=== PATIENT | female | born 1945 | race Two or more races ===

== ENCOUNTER 2025-04-07 14:48 | Emergency (ER) | payer OTHER, SELFPAY ==
[2025-04-07] VITALS (7 sets, daily range): BP systolic 129–148; BP diastolic 58–78; PULSE 78–98; RESP 18; TEMP 36.2–37.3; O2SAT 97–99; BMI 27.7
--- NOTE | ~2025-04-07 | XR_ITS ---
CLINICAL HISTORY: cough 1 view chest x-ray Comparison: None provided Findings: Prominent interstitial markings and peribronchial thickening may be atypical infection. No consolidation, pleural effusion or pneumothorax. Normal size heart. No acute fracture. IMPRESSION: Prominent interstitial markings and peribronchial thickening, possibly representing atypical infection. No consolidation. This document has been electronically signed by: Faizan Frias MD on 04/07/2025 18:06:33
--- NOTE | ~2025-04-07 | CT_ITS ---
EXAMINATION: CT HEAD WITHOUT CONTRAST CLINICAL INFORMATION: loss of balance, Hx of untreated melanoma COMPARISON: None available. TECHNIQUE: Contiguous axial imaging was performed from the skull base to vertex without intravenous administration of contrast. This CT examination was performed using dose optimization techniques as appropriate, variously including the following: *Automated exposure control *Adjustment of mA and/or kV according to patient size (this includes techniques or standardized protocols for targeted exams where dose is matched to indication/reason for exam; i.e. extremities or head) *Use of iterative reconstruction technique DLP: 597 mGy-cm FINDINGS: No acute intracranial hemorrhage, mass effect, midline shift, hydrocephalus or herniation. Prominence of the extra-axial CSF spaces cerebral sulci in the frontal poles. Bilateral multifocal patchy deep periventricular white matter hypodensity. Calcified plaques in the cavernous supracavernous segments both ICAs. Xanthogranulomatous choroid plexus bilaterally. Calcified plaques in the V4 segments. Sellar/suprasellar region demonstrated no gross masses. Craniocervical junction demonstrates normal position of the cerebellar tonsils. Mucosal thickening and secretions in the paranasal sinuses with effervescent secretions in the left saphenous sinus. Polypoid morphology in the left maxillary sinus. Tympanic cavities and mastoid cells are aerated. CT/CT head/brain wo IV con IMPRESSION: No acute intracranial hemorrhage. 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 Atherosclerosis disease. Electronically signed by: Anthony Arita MD 04/07/2025 03:37 PM EDT
--- NOTE | 2025-04-07 15:08 | ECG_ITS ---
Test Reason : DIZZINESS Blood Pressure : */* mmHG Vent. Rate : 80 BPM Atrial Rate : 80 BPM P-R Int : 126 ms QRS Dur : 86 ms QT Int : 358 ms P-R-T Axes : 11 46 50 degrees QTcB Int : 412 ms Normal sinus rhythm Normal ECG No previous ECGs available Referred By: Julio Hughes Electronically Signed By: NELSON AYALA MD
--- NOTE | 2025-04-07 15:08 | ED.GENADULT ---
[facility] - General Adult General Chief complaint: Dizziness Stated complaint: Facial itchiness, skin cancer Time Seen by Provider: 04/07/25 17:32 Source: patient Mode of arrival: ambulatory Limitations: no limitations History of Present Illness HPI narrative: this is a thom 80 years old female patient presented to the emergency department complaining of weakness and cough hitching of the face. Denies any fever any chills. Symptoms have been going on for a few days Onset (ago): day(s) (2) Location: face Radiation: non-radiation Severity: mild Quality: burning Pain Consistency: constant Related Data Allergies Allergy/AdvReac Type Severity Reaction Status Date / Time No Known Allergies Allergy Verified 04/07/25 15:14 Review of Systems Constitutional: Constitutional: Reports as per [facility] Past Medical History Attestation statement: The following information was validated with the patient. [facility] Narrative: She denies any major medical problems Social History Social History Smoked in Last 30 Days: No Use of substances other than those prescribed or required for medical reasons: No Advance Directives: No Advance Directives Information Provided: No Do you have a plan to hurt others: No Plan Physical Exam ED Vital Signs: Vital Signs - 24 hr 04/07/25 15:08 04/07/25 16:32 04/07/25 17:18 Temperature 98.2 F 97.2 F Pulse Rate 98 81 78 Respiratory Rate 18 18 Blood Pressure 148/58 H 135/78 129/64 Pulse Oximetry 97 99 Oxygen Delivery Method Room Air Room Air 04/07/25 17:20 04/07/25 17:21 04/07/25 18:32 Temperature Pulse Rate 81 91 82 Respiratory Rate 18 Blood Pressure 135/68 141/78 H 134/71 Pulse Oximetry 97 Oxygen Delivery Method Room Air 04/07/25 18:34 Temperature 99.2 F Pulse Rate 82 Respiratory Rate 18 Blood Pressure 134/71 Pulse Oximetry 97 Oxygen Delivery Method Room Air BMI result Body Mass Index 27.7 she looks well she is not toxic-appearing she has stable vital signs her O2 sat is normal she is afebrile Const General: cooperative, comfortable and no acute distress Nutritional Appearance: average body habitus Orientation/consciousness: patient oriented x3 Limitations: no limitations HENMT Head: Yes normal to inspection General nose exam: Normal external nose present Face and sinus: Yes normal facial exam Mouth: Normal oral and palatal mucosa present Neck Neck: Yes normal visual inspection Chest Chest palpation & inspection: normal inspection of the chest Resp Other: lungs are clear no wheezing no rales Effort & Inspection: normal respiratory effort Cardio Jugular venous distension: no JVD Rate: regular rate Rhythm: regular rhythm GI Inspection: Yes normal to inspection Palpation (GI): Soft to palpation, not firm and nontender Skin General skin exam: elasticity normal and turgor normal Neuro General: patient oriented x3 Course Course Course Narrative: RME, this is a rapid medical exam performed by Jarod Hughes please refer to primary provider for complete H&P- 80-year-old female presents for evaluation of loss of balance. Patient was reportedly diagnosed with skin cancer, melena 1 year ago and did not get and intermittent for this. She is now complaining of dizziness and unsteady gait. She can from urgent care to have a CT scan of her brain. Plan for basic labs as well Reevaluation(s) Reevaluation #1: patient remained stable O2 sat 99% she is COVID positive over she is oxygenating very well she is not tachypneic respiration is 18 she is not tachycardic she is able to drink fluid I think she can go home with the family Time: 18:18 Medical Decision Making Medical Decision Making [facility] Narrative: patient is here complaining of weakness generalized malaise and it is reasonable to check blood work chest x-ray. 60 18:00 COVID test positive vital signs remained stable with a excellent oxygenation no tachypnea not tachycardia I think she can Differential Diagnosis Differential Diagnoses: The differential diagnosis associated with the presentation includes Viral syndrome /flu /pneumonia Admission/Observation Consideration of admission/observation: Escalation of care including admission/observation considered Lab Data [facility] Lab Attestation statement: I reviewed the patient's lab results. 04/07/25 15:36 04/07/25 15:36 Labs: Lab Results 04/07/25 Range/Units 15:36 WBC 10.6 (4.8-10.8) X10*3/uL RBC 4.25 (4.20-5.50) X10*6/uL Hgb 12.7 (12.0-16.0) g/dl Hct 37.7 (37.0-47.0) % MCV 88.7 (80.0-98.0) fL MCH 29.9 (27.0-33.0) pg MCHC 33.7 (31.0-35.0) g/dl RDW 13.2 (11.0-16.0) % Plt Count 184 (160-400) X10*3/uL MPV 9.1 L (9.4-12.3) fL Immature Gran % (Auto) 0.3 (0.0-0.4) % Neut % (Auto) 58.6 (45-73) % Lymph % (Auto) 26.9 (20-40) % [place] % (Auto) 8.7 (2-11) % Eos % (Auto) 5.2 H (0-4) % Baso % (Auto) 0.3 (0-2) % Lymph # (Auto) 2.9 (1.2-4.9) X10*3/uL [place] # (Auto) 0.9 (0.1-1.2) X10*3/uL Eos # (Auto) 0.6 H (0.0-0.4) X10*3/uL Baso # (Auto) 0.0 (0.0-0.2) X10*3/uL Abs Immat Gran (auto) 0.03 (0.00-0.03) X10*3/uL Absolute Neuts (auto) 6.2 (2.0-8.3) x10*3/uL Absolute Nucleated RBC 0.000 (0.0-0.012) X10*3/uL Nucleated RBC % (auto) 0.0 (0.0-0.2) /100WBC Sodium 143 (135-145) mmol/L Potassium 3.8 (3.3-5.1) mmol/L Chloride 107 (96-108) mmol/L Carbon Dioxide 28 (22-29) mmol/L Anion Gap 12 (12-20) BUN 25 H (9-16) mg/dL Creatinine 0.79 (0.5-1.4) mg/dL Estim Creat Clear Calc 45.6 Estimated GFR > 60 Random Glucose 91 (60-115) mg/dL Calcium 9.6 (8.4-10.2) mg/dL Total Bilirubin 0.5 (0.0-1.0) mg/dL AST 31 (5-31) U/L ALT 23 (0-31) U/L Alkaline Phosphatase 82 (39-117) U/L Total Protein 7.2 (6.5-8.0) g/dL Albumin 4.1 (3.5-5.0) g/dL Lipase 34 (8-78) U/L Influenza Type A (PCR) NEGATIVE (Negative) Influenza Type B (PCR) NEGATIVE (Negative) RSV RNA Qual (PCR) NEGATIVE (Negative) SARS-CoV-2 RNA (RT-PCR) POSITIVE A (Negative) Radiology Impression Discussion of test interpretation with radiology: I have reviewed the radiologist's reading. Independent Historian Clinical information obtained from an independent historian. History obtained from or confirmed by: Other (brother) 1 view chest x-ray Comparison: None provided Findings: Prominent interstitial markings and peribronchial thickening may be atypical infection. No consolidation, pleural effusion or pneumothorax. Normal size heart. No acute fracture. IMPRESSION: Prominent interstitial markings and peribronchial thickening, possibly representing atypical infection. No consolidation. This document has been electronically signed by: Faizan Frias MD on 04/07/2025 18:06:33 Discharge Plan Discharge Clinical Impression: COVID-19 Patient Disposition: Home, Self-Care Instructions: COVID-19 (Coronavirus Disease 2019) (ED) Additional Instructions: , you tested positive for COVID however you do not have a fever ,your oxygen is excellent your no coughing at this time we are not sure if he is this is a new infection vs old infection. Your stable for discharge follow-up with your primary care physician take ibuprofen or Tylenol as needed Interventions: ED Discharge Assessment Last Done: 04/07/25 18:34 Discharge Date/Time: 04/07/25 18:35 Print Language: Greenlandic
[2025-04-07 15:40] LABS: MANUAL DIFF FLAG NO
[2025-04-07 15:42] LABS: Hematocrit 37.7 % (37.0-47.0); Hemoglobin 12.7 g/dl (12.0-16.0); Imm Gran Abs Auto 0.03 X10*3/uL (0.00-0.03); Imm Gran Pct Auto 0.3 % (0.0-0.4); Lymphocytes Absolute Auto 2.9 X10*3/uL (1.2-4.9); Mean Corpuscular HGB Conc 33.7 g/dl (31.0-35.0); Mean Corpuscular Hemoglobin 29.9 pg (27.0-33.0); Mean Corpuscular Volume 88.7 fL (80.0-98.0); NRBC Abs Auto 0.000 X10*3/uL (0.0-0.012); NRBC Pct Auto 0.0 /100WBC (0.0-0.2); Platelet Count 184 X10*3/uL (160-400); Red Blood Count 4.25 X10*6/uL (4.20-5.50); White Blood Count 10.6 X10*3/uL (4.8-10.8)
[2025-04-07 15:57] LABS: Alanine Aminotransferase 23 U/L (0-31); Albumin Level 4.1 g/dL (3.5-5.0); Alkaline Phosphatase 82 U/L (39-117); Anion Gap 12 (12-20); Aspartate Amino Transferase 31 U/L (5-31); Blood Urea Nitrogen 25 mg/dL (9-16); Calcium 9.6 mg/dL (8.4-10.2); Carbon Dioxide 28 mmol/L (22-29); Chloride 107 mmol/L (96-108); Creatinine Clr Calc Pharmacy 45.6; Estimated Glomerular Filt Rate > 60; Lipase 34 U/L (8-78); Potassium 3.8 mmol/L (3.3-5.1); Sodium 143 mmol/L (135-145); Total Protein 7.2 g/dL (6.5-8.0)
[2025-04-07 17:03] LABS: Resp Syncy Virus RNA Qual PCR NEGATIVE (Negative); SARS COV2 PCR INHOUSE POSITIVE (Negative)
== END 2025-04-07 18:35 | disposition home or self-care (01) ==
PROVIDERS: Physician Assistant; Emergency Provider Emergency Medicine
DX: U07.1 COVID-19 (principal); R26.81 Unsteadiness on feet; R42 Dizziness and giddiness
CPT/HCPCS: 36415; 70450; 71045; 80053; 83690; 85025; 87637; 93005; 99284

== ENCOUNTER → 2025-04-07 15:08 | Outpatient (BNV) | payer OTHER, SELFPAY | PROVIDERS: Emergency Provider Emergency Medicine; Visit Provider Internal Medicine Cardiovascular Disease | DX: R42 Dizziness and giddiness (principal) | CPT/HCPCS: 93010 ==

== ENCOUNTER → 2025-04-07 15:08 | Outpatient (BNV) | payer OTHER, SELFPAY | PROVIDERS: Visit Provider Radiology Diagnostic Radiology | DX: R90.82 White matter disease, unspecified (principal); R05.9 Cough, unspecified | CPT/HCPCS: 70450; 71045 ==